=== PATIENT | female | born 1970 | race African-American/Black ===

== ENCOUNTER 2016-10-17 11:04 | Emergency (ER) | payer MEDICAID, OTHER ==
[~2016-10-17] VITALS: Ht 167.6 cm; Wt 82.0 kg
[2016-10-17 11:08] VITALS: BP 135/79
== END 2016-10-17 14:54 | disposition left against medical advice (07) ==
LOC: ER 13:00
DX: I10 Essential (primary) hypertension (principal); Z53.21 Procedure and treatment not carried out due to patient leaving prior to being seen by health care provider